=== PATIENT | female | born 1985 | race Caucasian/White ===

== ENCOUNTER 2018-01-16 21:55 | Inpatient (IN) | payer MEDICAID ==
[~2018-01-16] VITALS: Ht 157.5 cm; Wt 50.6 kg
[2018-01-16 22:42] LABS: BASOPHILS # (AUTO) 0.03 x10^3/uL (0-0.1); BASOPHILS % (AUTO) 0 % (0-1); EOSINOPHILS % (AUTO) 0 % (1-7); LYMPHOCYTES # (AUTO) 0.92 x10^3/uL (1-3.4); LYMPHOCYTES % (AUTO) 7 % (22-44); MD NO; MEAN CORPUSCULAR HEMOGLOBIN 32.2 pg (27.0-34.8); MEAN CORPUSCULAR VOLUME 94.6 fL (80-100); MEAN PLATELET VOLUME 7.5 fL (7.4-10.4); MONOCYTES # (AUTO) 0.89 x10^3/uL (0.2-0.8); MONOCYTES % (AUTO) 7 % (2-9); NEUTROPHILS # (AUTO) 11.54 x10^3/uL (1.8-6.8); NEUTROPHILS % (AUTO) 86 % (42-75); PLATELET COUNT 258 x10^3/uL (130-400)
[2018-01-16 22:48] LABS: AMPHETAMINE SCREEN, URINE Positive (Negative); BARBITURATE SCREEN, URINE Negative (Negative); BENZODIAZEPINE SCREEN, URINE Negative (Negative); CANNABINOID SCREEN, URINE Negative (Negative); COCAINE SCREEN, URINE Negative (Negative); METHADONE SCREEN, URINE Negative (Negative); OPIATE SCREEN, URINE Negative (Negative)
[2018-01-16 22:51] LABS: ALBUMIN 4.1 g/dL (3.4-5.0); ANION GAP 17 mmol/L (5-15); CALCIUM 8.7 mg/dL (8.5-10.1); CHLORIDE 102 mmol/L (98-107); CREATININE 0.76 mg/dL (0.55-1.02); SALICYLATE LEVEL < 1.7 mg/dL (2.8-20.0)
[2018-01-16 22:52] LABS: ACETAMINOPHEN < 2 mcg/mL (10-30)
[2018-01-16] MEDS ORDERED: THIAMINE 100MG TABLET PO ONE (23:30)
[2018-01-16] MEDS ORDERED: SODIUM CHLORIDE 0.9% 1,000ML IVBOLUS ONE (23:30)
[2018-01-17] MEDS ORDERED: D5%-0.45NACL+KCL 20MEQ 1,000 ML IV SCH
[2018-01-17] MEDS: SODIUM CHLORIDE 0.9% 1,000 ML IV SCH ×4 (00:22→23:14)
[2018-01-17] MEDS ORDERED: THIAMINE 100MG TABLET ONE (00:29)
[2018-01-17] MEDS ORDERED: LORazepam 2 MG/ML, 1ML IVPush PRN (00:30)
[2018-01-17] MEDS ORDERED: hydrALAzine 20 MG/ML, 1ML IVPush PRN (00:30)
[2018-01-17] MEDS ORDERED: ENOXAPARIN 40 MG/0.4 ML SQ SCH (00:30)
[2018-01-17] MEDS ORDERED: THIAMINE 100 MG, MVI ADULT 10 ML, FOLIC ACID 1 MG in D5%-0.9% NACL 1,000 ML IV SCH (00:30)
[2018-01-17] MEDS ORDERED: ONDANSETRON 2MG/ML, 2ML IVPush PRN (00:30)
[2018-01-17] MEDS ORDERED: PROMETHAZINE 25 MG/ML, 1ML IM PRN (00:30)
[2018-01-17 00:49] VITALS: BP 128/72
[2018-01-17 01:00] VITALS: BP 128/72
[2018-01-17 04:10] VITALS: BP 153/89
[2018-01-17 04:34] LABS: BASOPHILS # (AUTO) 0.05 x10^3/uL (0-0.1); BASOPHILS % (AUTO) 1 % (0-1); EOSINOPHILS # (AUTO) 0.01 x10^3/uL (0-0.4); EOSINOPHILS % (AUTO) 0 % (1-7); LYMPHOCYTES # (AUTO) 0.97 x10^3/uL (1-3.4); LYMPHOCYTES % (AUTO) 11 % (22-44); MD NO; MEAN CORPUSCULAR HEMOGLOBIN 31.3 pg (27.0-34.8); MEAN CORPUSCULAR HGB CONC 33.3 g/dL (32.4-35.8); MEAN CORPUSCULAR VOLUME 93.8 fL (80-100); MEAN PLATELET VOLUME 7.7 fL (7.4-10.4); MONOCYTES # (AUTO) 0.51 x10^3/uL (0.2-0.8); MONOCYTES % (AUTO) 6 % (2-9); NEUTROPHILS # (AUTO) 6.98 x10^3/uL (1.8-6.8); NEUTROPHILS % (AUTO) 82 % (42-75); PLATELET COUNT 246 x10^3/uL (130-400); RED BLOOD COUNT 3.94 x10^6/uL (3.82-5.3); RED CELL DISTRIBUTION WIDTH 14.1 % (9.6-15.2)
[2018-01-17 04:42] LABS: ALBUMIN 3.9 g/dL (3.4-5.0); ANION GAP 16 mmol/L (5-15); CALCIUM 8.2 mg/dL (8.5-10.1); CHLORIDE 103 mmol/L (98-107)
[2018-01-17 04:45] LABS: ALANINE AMINOTRANSFERASE 37 U/L (12-78); ALKALINE PHOSPHATASE 77 U/L (45-117); BILIRUBIN,TOTAL 1.7 mg/dL (0.2-1.0); CREATININE 0.57 mg/dL (0.55-1.02); TOTAL PROTEIN 7.4 g/dL (6.4-8.2)
[2018-01-17] MEDS ORDERED: POTASSIUM PHOSPHATE 44 MEQ in SODIUM CHLORIDE 0.9% 500 ML IV ONE (05:30)
[2018-01-17] MEDS ORDERED: CHLORDIAZEPOXIDE 10 MG CAPSULE PO PRN (06:00)
[2018-01-17] MEDS ORDERED: CHLORDIAZEPOXIDE 25 MG CAPSULE PO PRN (06:00)
[2018-01-17] MEDS: CHLORDIAZEPOXIDE 25 MG CAPSULE PO PRN (06:45)
[2018-01-17 07:35] VITALS: BP 114/71
[2018-01-17 13:37] VITALS: BP 125/73
[2018-01-17 20:22] VITALS: BP 120/77
[2018-01-18] MEDS ORDERED: THIAMINE 100 MG, MVI ADULT 10 ML, FOLIC ACID 1 MG in D5%-0.9% NACL 1,000 ML IV SCH (00:30)
[2018-01-18 01:46] VITALS: BP 115/77
[2018-01-18 04:44] LABS: CHLORIDE 110 mmol/L (98-107)
[2018-01-18 04:52] LABS: ALANINE AMINOTRANSFERASE 27 U/L (12-78); ALBUMIN 2.7 g/dL (3.4-5.0); ALKALINE PHOSPHATASE 53 U/L (45-117); ANION GAP 7 mmol/L (5-15); BILIRUBIN,TOTAL 0.8 mg/dL (0.2-1.0); CALCIUM 7.5 mg/dL (8.5-10.1); CREATININE 0.52 mg/dL (0.55-1.02); TOTAL PROTEIN 5.6 g/dL (6.4-8.2)
[2018-01-18 09:04] VITALS: BP 120/79
[2018-01-18] MEDS: CHLORDIAZEPOXIDE 25 MG CAPSULE PO PRN ×2 (09:42→23:49)
[2018-01-18] MEDS: ACETAMINOPHEN 325 MG TABLET PO PRN ×2 (10:57→20:53)
[2018-01-18 15:56] VITALS: BP 120/84
[2018-01-18] MEDS ORDERED: POTASSIUM CHLORIDE 20 MEQ TAB.ER.PRT PO ONE (16:00)
[2018-01-18] MEDS ORDERED: MAGNESIUM SULFATE PMX 2GM/50ML 50 ML IV ONE (16:00)
[2018-01-18 18:51] LABS: CLOSTRIDIUM DIFFICILE ANTIGEN NEGATIVE; CLOSTRIDIUM DIFFICILE TOXIN NEGATIVE (Negative)
[2018-01-18 19:57] VITALS: BP 114/73
[2018-01-19] MEDS ORDERED: SODIUM CHLORIDE 0.9% 1,000 ML IV SCH (00:22)
[2018-01-19 02:36] VITALS: BP 121/82
[2018-01-19] MEDS: CHLORDIAZEPOXIDE 25 MG CAPSULE PO PRN ×3 (07:25→19:12)
[2018-01-19 10:08] VITALS: BP 133/81
[2018-01-19] MEDS: SODIUM CHLORIDE 0.9% 1,000 ML IV SCH (13:54)
[2018-01-19 16:43] VITALS: BP 120/82
[2018-01-19 19:26] VITALS: BP 125/84
[2018-01-20 02:18] VITALS: BP 106/68
[2018-01-20] MEDS: CHLORDIAZEPOXIDE 25 MG CAPSULE PO PRN (02:52)
[2018-01-20] MEDS: SODIUM CHLORIDE 0.9% 1,000 ML IV SCH (02:54)
[2018-01-20 08:11] VITALS: BP 128/85
[2018-01-20 19:09] VITALS: BP 137/94
[2018-01-20] MEDS: PALIPERIDONE 3 MG TAB.ER.24 PO SCH (19:34)
[2018-01-20] MEDS: ACETAMINOPHEN 325 MG TABLET PO PRN (21:51)
[2018-01-21 01:25] VITALS: BP 121/66
[2018-01-21 08:23] VITALS: BP 110/70
[2018-01-21 13:13] VITALS: BP 111/75
[2018-01-21] MEDS: SODIUM CHLORIDE 0.9% 1,000 ML IV SCH (14:46)
[2018-01-21 17:45] VITALS: BP 134/88
[2018-01-21] MEDS ORDERED: ARIP5TAB13 PO (18:16)
[2018-01-21] MEDS ORDERED: DIVA500T2 PO (18:16)
[2018-01-21] MEDS ORDERED: LORA-445 PO (18:17)
[2018-01-21 19:45] VITALS: BP 126/86
[2018-01-21] MEDS: PALIPERIDONE 3 MG TAB.ER.24 PO SCH (20:12)
[2018-01-22 08:13] VITALS: BP_SYST 128
[2018-01-22] MEDS: PALIPERIDONE 3 MG TAB.ER.24 PO SCH (09:11)
[2018-01-22 19:31] VITALS: BP 116/67
[2018-01-22] MEDS: ACETAMINOPHEN 325 MG TABLET PO PRN (20:57)
[2018-01-23] MEDS: PALIPERIDONE 3 MG TAB.ER.24 PO SCH (07:57)
[2018-01-23 08:23] VITALS: BP_SYST 106
[2018-01-23 19:40] VITALS: BP 129/84
[2018-01-23] MEDS: ACETAMINOPHEN 325 MG TABLET PO PRN (22:26)
[2018-01-24 05:25] LABS: CHLORIDE 103 mmol/L (98-107)
[2018-01-24 05:57] LABS: ANION GAP 8 mmol/L (5-15); CALCIUM 8.9 mg/dL (8.5-10.1)
[2018-01-24 08:19] VITALS: BP 104/68
[2018-01-24 19:52] VITALS: BP 117/78
[2018-01-25 08:15] VITALS: BP 108/73
[2018-01-25] MEDS ORDERED: PALIPERIDONE 3 MG TAB.ER.24 PO SCH (19:00)
[2018-01-25 19:29] VITALS: BP 123/87
== END 2018-01-26 02:45 | DRG 885 ==
LOC: ED 23:48 → EDIP 23:49 → 3NW 01-17 00:40 → 2N 01-21 17:20
PROVIDERS: ADMIT Hospitalist; ATTEND Hospitalist
DX: F31.9 Bipolar disorder, unspecified (principal); L03.90 Cellulitis, unspecified; R45.851 Suicidal ideations; E87.2 Acidosis; T73.0XXA Starvation, initial encounter; F15.10 Other stimulant abuse, uncomplicated; G47.00 Insomnia, unspecified; F10.10 Alcohol abuse, uncomplicated; E87.6 Hypokalemia; E88.89 Other specified metabolic disorders; E83.42 Hypomagnesemia; R56.9 Unspecified convulsions; F17.200 Nicotine dependence, unspecified, uncomplicated; F20.9 Schizophrenia, unspecified; I10 Essential (primary) hypertension; Z59.0 Homelessness; Z91.19 Patient's noncompliance with other medical treatment and regimen; Z91.5 Personal history of self-harm
CPT/HCPCS: 36415; 99285; J7042; 80048; 80053; 80307; 80329; 82040; 83690; 83735; 84100; 84703; 85025; 87324; 96374; G0378; J1650; J3411; G0480; J2060; J3475; J3480; J7030; J7040